=== PATIENT | male | born 1975 | race African-American/Black ===

== ENCOUNTER 2018-03-08 12:22 | Observation (INO) ==
--- NOTE | 2018-03-08 12:38 | ED ---
HPI General Chief Complaint: Chest Pain Stated Complaint: Irregular HB Chest Pain since AM Time Seen by Provider: 03/08/18 12:28 History of Present Illness HPI narrative: Patient is -[place] male, 42 years old, with history of hyperlipidemia, presented to emergency room for chest pain started at 8:30 in the morning, had few episodes the last 1-20 minutes ago. Patient also had palpitations and some shortness of breath during the pain episodes. He is asymptomatic in the emergency room. Vitals stable. He denies fever, upper respiratory symptoms, nausea, vomiting, drug abuse. Patient stated that he drank alcohol yesterday. Related Data Home Medications Medication Instructions Recorded Confirmed simvastatin 03/08/18 Allergies Allergy/AdvReac Type Severity Reaction Status Date / Time No Known Allergies Allergy Mild Uncoded 06/28/08 03:25 Review of Systems ROS: all other systems reviewed are negative Cardiovascular Reports chest pain and Reports palpitations [facility] Medical History Medical History High cholesterol (Acute) Surgical History Surgical History History of back surgery (Acute) Social History Social History Substance History: No History of Abuse Smoking Status: Never smoker How Often Do You Have a Drink Containing Alcohol: 4 or more times a week Recent Travel in [facility] within the Last 8 Weeks: No Recent Out of Country Travel within the Last 8 Weeks: No Exam Narrative Exam Narrative: GENERAL: 52-year-old male in no apparent distress. SKIN: Focused skin assessment warm/dry. HEAD: Atraumatic. Normocephalic. EYES: Pupils equal and round. No scleral icterus. No injection or drainage. ENT: No nasal bleeding or discharge. Mucous membranes pink and moist. NECK: Trachea midline. No JVD. CARDIOVASCULAR: Regular rate and rhythm. No murmur appreciated. RESPIRATORY: No accessory muscle use. Clear to auscultation. Breath sounds equal bilaterally. GASTROINTESTINAL: Abdomen soft, non-tender, nondistended. Hepatic and splenic margins not palpable. MUSCULOSKELETAL: No obvious deformities. No clubbing. No cyanosis. No edema. NEUROLOGICAL: Awake and alert. No obvious cranial nerve deficits. Motor grossly within normal limits. Normal speech. PSYCHIATRIC: Appropriate mood and affect; insight and judgment normal. Course Initial Documented Vital Signs Temperature 98.0 F 03/08/18 12:35 Pulse Rate 89 03/08/18 12:35 Respiratory Rate 20 03/08/18 12:35 Blood Pressure 151/84 H 03/08/18 12:35 Pulse Oximetry 98 03/08/18 12:35 Last Documented Vital Signs Temperature 98.0 F 03/08/18 12:35 Pulse Rate 72 03/08/18 15:44 Respiratory Rate 20 03/08/18 15:44 Blood Pressure 131/73 03/08/18 15:44 Pulse Oximetry 97 03/08/18 15:44 Medical Decision Making MDM Narrative Medical decision making narrative: Patient presented for chest pain, shortness of breath and palpitations during pain episodes, looks anxious. Cardiac workup ordered, aspirin given. Reevaluation is pending. Patient is asymptomatic in the emergency room, first set of cardiac enzymes was negative, normal EKG. Patient agreed to stay in observation for further evaluation and treatment. Chest pain center and [facility] informed. Medical Screen Exam Complete: Yes Emergency Medical Condition: Yes Lab Data Result diagrams: 03/08/18 12:40 03/08/18 12:40 Lab Results 03/08/18 03/08/18 03/08/18 Range/Units 12:40 12:40 14:30 CBC w Diff Auto diff final WBC 5.9 (4.0-11.0) th/mm3 RBC 4.76 (4.50-5.90) mil/mm3 Hgb 15.3 (13.0-17.0) gm/dL POC Hgb (Calc) Not Reportable Hct 44.3 (39.0-51.0) % POC Hct Not Reportable MCV 93.2 (80.0-100.0) fL MCH 32.2 (27.0-34.0) pg MCHC 34.5 (32.0-36.0) % RDW 11.4 L (11.6-17.2) % Plt Count 300 (150-450) th/mm3 MPV 8.9 (7.0-11.0) fL Neut % (Auto) 58.6 (16.0-70.0) % Lymph % (Auto) 31.2 (9.0-44.0) % [place] % (Auto) 7.6 (0.0-8.0) % Eos % (Auto) 1.9 (0.0-4.0) % Baso % (Auto) 0.7 (0.0-2.0) % Neut # (Auto) 3.6 (1.8-7.7) th/mm3 Lymph # (Auto) 1.8 (1.0-4.8) th/mm3 [place] # (Auto) 0.4 (0.0-0.9) th/mm3 Eos # (Auto) 0.1 (0.0-0.4) th/mm3 Baso # (Auto) 0.0 (0.0-0.2) th/mm3 WBC Differential . Differential Comment . POC Sodium 142 (137-144) mmol/L Sodium 140 (136-145) meq/L POC Potassium 4.2 (3.6-5.0) mmol/L Potassium 4.3 (3.5-5.1) meq/L POC Chloride 106 (102-111) mmol/L Chloride 106 (98-107) meq/L Carbon Dioxide 27.2 (21.0-32.0) meq/L Anion Gap 7 (5-15) meq/L POC BUN 23 H (5-21) mg/dL BUN 20 H (7-18) mg/dL Creatinine 1.10 (0.60-1.30) mg/dL POC Creatinine 1.0 (0.6-1.3) mg/dL Estimated GFR 88 L (>89) mL/min POC Glucose 101 (68-110) mg/dL Random Glucose 111 H (74-106) mg/dL Calcium 9.0 (8.5-10.1) mg/dL Total Bilirubin 0.4 (0.2-1.0) mg/dL AST 43 H (15-37) U/L ALT 55 (12-78) U/L Alkaline Phosphatase 153 H (45-117) U/L Troponin Less than 0.05 (0.00-0.40) ng/mL Troponin I Cancelled Total Protein 8.9 H (6.4-8.2) g/dL Albumin 4.3 (3.4-5.0) g/dL Urine Opiates Screen Neg (Neg) Ur Barbiturates Screen Neg (Neg) Ur Amphetamines Screen Neg (Neg) U Benzodiazepines Scrn Neg (Neg) Urine Cocaine Screen Neg (Neg) U Cannabinoids Screen Neg (Neg) Serum Alcohol Less than 3 (0-5) mg/dL Imaging Data Radiologist's impression: Chest X-Ray 03/08/18 12:35 CONCLUSION: No acute cardiopulmonary abnormality is identified. ECG Data EKG Prior to Arrival: No Attestation: I personally reviewed and interpreted this ECG as follows: Prior ECG tracings: available for review Interpretation: Normal sinus rhythm at rate 89 no elevation, normal EKG. Discharge Plan Discharge Disposition Patient Disposition: ED Admit(ED Internal Use Only) Discharge Condition Condition: Fair Discharge Order Discharge Orders: ED Use Only Admit Order (Routine); Ordered 03/08/18 Ordered By: Samir Stallworth Physicians Team ED Provider: Samir Stallworth Primary Care Provider: Mena Stringer Rxs /Orders / Referrals /Forms Prescriptions: No Action simvastatin RF: 0 Discharge Instructions Patient Printed Instructions: Chest Pain (ED) Status ED Status: Admitted Observation Patient
[2018-03-08 12:51] LABS: Baso % (Auto) 0.7 % (0.0-2.0); Eos # (Auto) 0.1 th/mm3 (0.0-0.4); Eos % (Auto) 1.9 % (0.0-4.0); Hematocrit 44.3 % (39.0-51.0); Hemoglobin 15.3 gm/dL (13.0-17.0); Lymph # (Auto) 1.8 th/mm3 (1.0-4.8); Lymph % (Auto) 31.2 % (9.0-44.0); Mean Corpuscular HGB Conc 34.5 % (32.0-36.0); Mean Corpuscular Hemoglobin 32.2 pg (27.0-34.0); Mean Corpuscular Volume 93.2 fL (80.0-100.0); Mean Platelet Volume 8.9 fL (7.0-11.0); Mono # (Auto) 0.4 th/mm3 (0.0-0.9); Mono % (Auto) 7.6 % (0.0-8.0); Neut # (Auto) 3.6 th/mm3 (1.8-7.7); Neut % (Auto) 58.6 % (16.0-70.0); Platelet Count 300 th/mm3 (150-450); Red Blood Count 4.76 mil/mm3 (4.50-5.90); Red Cell Distribution Width 11.4 % (11.6-17.2); White Blood Count 5.9 th/mm3 (4.0-11.0)
--- NOTE | 2018-03-08 13:01 | XR ---
EXAM DATE: 03/08/2018 12:44 PM EST AGE/SEX: 42 years / Male INDICATIONS: Chest pain, irregular heart beat, short of breath. CLINICAL DATA: This is the patient's initial encounter. Patient reports that signs and symptoms have been present for 1 day and indicates a pain score of 6/10. MEDICAL/SURGICAL HISTORY: None. None. COMPARISON: No prior exams available for comparison. FINDINGS: Underinflated AP view of the chest demonstrates a normal-sized cardiac silhouette. There is mild subs egmental atelectasis at the lung bases but no effusion, consolidation, or pneumothorax is identified. Bones and soft tissues demonstrate no acute finding. EKG lines overlie the patient. CONCLUSION: No acute cardiopulmonary abnormality is identified. Electronically signed by: Harsha Tavares MD Board Certified Radiologist 03/08/2018 1:00 PM EST
[2018-03-08 14:20] LABS: Alkaline Phosphatase 153 U/L (45-117); Total Protein 8.9 g/dL (6.4-8.2)
[2018-03-08 14:21] LABS: Alanine Aminotransferase 55 U/L (12-78); Albumin 4.3 g/dL (3.4-5.0); Anion Gap 7 meq/L (5-15); Aspartate Aminotransferase 43 U/L (15-37); Blood Urea Nitrogen 20 mg/dL (7-18); Carbon Dioxide 27.2 meq/L (21.0-32.0); Chloride 106 meq/L (98-107); Glomerular Filtration Rate 88 mL/min (>89); Glucose,Random 111 mg/dL (74-106); Potassium 4.3 meq/L (3.5-5.1)
[2018-03-08 14:22] LABS: Sodium 140 meq/L (136-145)
[2018-03-08 14:53] LABS: Amphetamine Screen,Urine Neg (Neg); Barbiturate Screen,Urine Neg (Neg)
[2018-03-08 14:54] LABS: Cannabinoid Screen,Urine Neg (Neg); Cocaine Screen,Urine Neg (Neg)
[2018-03-08 15:14] LABS: Opiate Screen,Urine Neg (Neg)
--- NOTE | 2018-03-08 15:42 | ECG ---
Date Performed: 03/08/2018 Time Performed: 12:28:42 PTAGE: 42 years EKG: Sinus rhythm NORMAL ECG NO PREVIOUS TRACING DOCTOR: Contreras Stafford Interpretating Date/Time 03/08/2018 15:41:03
[2018-03-08] MEDS ORDERED: Morphine Inj 4 MG/ML Vial IV.PUSH PRN (16:23)
[2018-03-08] MEDS ORDERED: Acetaminophen 500 MG Tablet PO PRN (16:23)
--- NOTE | 2018-03-08 16:40 | P.HP ---
History of Present Illness Primary Care Physician: Mena Stringer Chief Complaint: Palpitations and chest discomfort History of Present Illness: 42-year-old male with known history of hyperlipidemia who presented to hospital because of chest discomfort. Patient states that over the last year he has been experiencing intermittent episodes of him feeling his heart beating real hard and then developing a pain in the middle part of his chest. He does not associated with any exertion or rest. There is no radiation to neck, back, shoulder, arm. Denies any nausea, vomiting, diaphoresis, shortness of breath, dyspnea, lightheadedness, dizziness. The pain usually lasts for a couple minutes and are usually resolves on its own. Patient did go to his primary medical doctor's office about 1 week ago and they are in the process of getting him an appointment with a international logistics manager for further evaluation and management. However when the patient was having breakfast this morning at approximately 10 AM he had the same episode so he came to the hospital for evaluation. Currently the patient is asymptomatic. Patient had workup done by emergency department and it was recommended that patient be observed and chest pain center for further evaluation and management. Patient denies any previous cardiac workup or any outpatient international logistics manager at the time. - Diagnosis (1) Chest discomfort Review of Systems All other systems reviewed negative except as stated in HPI Cardiovascular: Reports chest pain, Reports rapid, pounding, or irregular heartbeat PMFSH - History History Provided By: Patient - Medical History Medical History: Medical History (Last Updated 03/08/18 @ 12:42 by Lawanda Plascencia RN) High cholesterol - Surgical History Surgical History: Surgical History (Last Updated 03/08/18 @ 12:42 by Lawanda Plascencia RN) History of back surgery - Family History Family History: Family History (Last Updated 03/08/18 @ 16:38 by MADI Burgos) Father Family history of heart disease Mother Family history of heart disease - Tobacco History Smoking Status: Current some day smoker - Alcohol History How Often Do You Have a Drink Containing Alcohol: 4 or more times a week ( Patient states that he drinks at least 14 alcoholic beverages weekly) - Substance Use History Substance History: No History of Abuse - Travel History Recent Travel in the [place] Within the Last 8 Weeks: No Recent Travel Out of the Country Within the Last 8 Weeks: No - Immunization History Tetanus Immunization: >5 Years Medications and Allergies Active Medications: Active Medications Acetaminophen (Tylenol) 500 mg PO Q4H PRN PRN Reason: HEADACHE Hydrocodone Bitart/Acetaminophen ([place] 7.5/325) 1 tab PO Q4H PRN PRN Reason: PAIN SCALE 1 TO 7 Aspirin (Aspirin) 325 mg PO DAILY GIGI Morphine Sulfate (Morphine Inj) 2 mg IV.PUSH Q4H PRN PRN Reason: PAIN SCALE 8 TO 10 Nitroglycerin (Nitrostat Sl) 0.4 mg SL Q5M PRN PRN Reason: CHEST PAIN Ondansetron HCl (Zofran Inj) 4 mg IV.PUSH Q6H PRN PRN Reason: NAUSEA Sodium Chloride (Ns Flush) 2 ml IV.FLUSH UNSCH PRN PRN Reason: FLUSH AFTER USING IV ACCESS Sodium Chloride (Ns Flush) 2 ml IV.FLUSH BID GIGI Sodium Chloride (Ns Flush) 2 ml IV.FLUSH PRN PRN PRN Reason: FLUSH AFTER USING IV ACCESS Allergies Allergy/AdvReac Type Severity Reaction Status Date / Time No Known Allergies Allergy Mild Uncoded 06/28/08 03:25 Home Medications Medication Instructions Recorded Confirmed Type simvastatin 03/08/18 History Exam Vital signs: Vital Signs 03/08/18 12:35 03/08/18 12:37 03/08/18 13:34 Temperature 98.0 F Pulse Rate 89 89 81 Respiratory Rate 20 20 Blood Pressure 151/84 H 134/77 Pulse Oximetry 98 98 100 03/08/18 14:34 03/08/18 15:44 Temperature Pulse Rate 74 72 Respiratory Rate 16 20 Blood Pressure 134/74 131/73 Pulse Oximetry 98 97 Intake & Output 03/07/18 03/08/18 03/08/18 18:59 06:59 18:59 Weight 101.8 kg Narrative: GENERAL: Well-developed, well-nourished, in no acute distress. alert and orientated HEENT: Head is normocephalic without any lesions or masses noted. Facial features are symmetric. Eyes: Pupils equal round reactive to light. Extraocular muscles are intact. Conjunctivae were clear. Oropharyngeal: Pharynx without any erythema edema. Tongue is midline without deviation. Buccal mucosa is moist without any masses or lesions NECK: Supple without any masses. Trachea midline no deviation. No JVD, no bruits are appreciated CARDIAC: Regular rhythm, regular rate. S1/S2 are heard. No murmurs gallops or rubs. LUNGS: Clear to auscultation bilaterally. No wheeze, rhonchi or rales. No use of accessory muscles on inspiration or expiration. ABDOMEN: Soft, nontender. Nondistended. Bowel sounds heard in all 4 quadrants. No organomegaly or masses. Negative rebound, negative guarding EXTREMITIES: No edema, pulses are equal bilaterally. No cyanosis or clubbing NEUROLOGY: Mood and affect appear appropriate. Cranial nerves II through XII grossly intact. Muscle strength 5/5 in upper and lower extremities bilaterally. Deep tendon reflexes are 2+ in upper and lower extremities bilaterally. Results - Labs CBC & Chem 7: 03/08/18 12:40 03/08/18 12:40 Labs: Laboratory Results - last 24 hr 03/08/18 03/08/18 03/08/18 12:40 12:40 14:30 CBC w Diff Auto diff final WBC 5.9 RBC 4.76 Hgb 15.3 POC Hgb (Calc) Not Reportable Hct 44.3 POC Hct Not Reportable MCV 93.2 MCH 32.2 MCHC 34.5 RDW 11.4 L Plt Count 300 MPV 8.9 Neut % (Auto) 58.6 Lymph % (Auto) 31.2 [place] % (Auto) 7.6 Eos % (Auto) 1.9 Baso % (Auto) 0.7 Neut # (Auto) 3.6 Lymph # (Auto) 1.8 [place] # (Auto) 0.4 Eos # (Auto) 0.1 Baso # (Auto) 0.0 WBC Differential . Differential Comment . POC Sodium 142 Sodium 140 POC Potassium 4.2 Potassium 4.3 POC Chloride 106 Chloride 106 Carbon Dioxide 27.2 Anion Gap 7 POC BUN 23 H BUN 20 H Creatinine 1.10 POC Creatinine 1.0 Estimated GFR 88 L POC Glucose 101 Random Glucose 111 H Calcium 9.0 Total Bilirubin 0.4 AST 43 H ALT 55 Alkaline Phosphatase 153 H Troponin Less than 0.05 Troponin I Cancelled Total Protein 8.9 H Albumin 4.3 Urine Opiates Screen Neg Ur Barbiturates Screen Neg Ur Amphetamines Screen Neg U Benzodiazepines Scrn Neg Urine Cocaine Screen Neg U Cannabinoids Screen Neg Serum Alcohol Less than 3 - Imaging Impressions Chest X-Ray 03/08/18 12:35 CONCLUSION: No acute cardiopulmonary abnormality is identified. Caprini VTE Risk Assessment Caprini VTE Risk Assessment: No/Low Risk (score <= 1) Caprini Risk Assessment Model: Point Value = 1 Point Value = 2 Point Value = 3 Point Value = 5 Age 41-60 Minor surgery BMI > 25 kg/m2 Swollen legs Varicose veins or History of unexplained or recurrent spontaneous Oral contraceptives or hormone replacement Sepsis (< 1 month) Serious lung disease, including pneumonia (< 1 month) Abnormal pulmonary function Acute myocardial infarction Congestive heart failure (< 1 month) History of inflammatory bowel disease Medical patient at bed rest Age 61-74 Arthroscopic surgery Major open surgery (> 45 min) Laparoscopic surgery (> 45 min) Malignancy Confined to bed (> 72 hours) Immobilizing plaster cast Central venous access Age >= 75 History of VTE Family history of VTE Factor V Leiden Prothrombin [id number] Lupus anticoagulant Anticardiolipin antibodies Elevated serum homocysteine Heparin-induced thrombocytopenia Other congenital or acquired thrombophilia Stroke (< 1 month) Elective arthroplasty Hip, pelvis, or leg fracture Acute spinal cord injury (< 1 month) Prophylaxis Regimen: Total Risk Factor Score Risk Level Prophylaxis Regimen 0-1 Low Early ambulation 2 Moderate Order ONE of the following: *Sequential Compression Device (SCD) *Heparin 5000 units SQ BID 3-4 Higher Order ONE of the following medications: *Heparin 5000 units SQ TID *Enoxaparin/Lovenox 40 mg SQ daily (WT < 150 kg, CrCl > 30 mL/min) *Enoxaparin/Lovenox 30 mg SQ daily (WT < 150 kg, CrCl > 10-29 mL/min) *Enoxaparin/Lovenox 30 mg SQ BID (WT < 150 kg, CrCl > 30 mL/min) AND/OR *Sequential Compression Device (SCD) 5 or more Highest Order ONE of the following medications: *Heparin 5000 units SQ TID (Preferred with Epidurals) *Enoxaparin/Lovenox 40 mg SQ daily (WT < 150 kg, CrCl > 30 mL/min) *Enoxaparin/Lovenox 30 mg SQ daily (WT < 150 kg, CrCl > 10-29 mL/min) *Enoxaparin/Lovenox 30 mg SQ BID (WT < 150 kg, CrCl > 30 mL/min) AND *Sequential Compression Device (SCD) Assessment and Plan - Assessment (1) Chest discomfort Code(s): R07.89 - Other chest pain Status: Acute - Plan Chest discomfort, palpitations -Patient with increased risk factors to include hyperlipidemia, family history of heart disease, tobacco use -We will continue to rule the patient out for acute coronary event with serial cardiac enzymes which thus far have been normal -We will continue monitor serial EKGs, original EKG shows sinus rhythm without any abnormalities -Continue monitor telemetry for any arrhythmia -If patient is ruled out for any acute coronary event will anticipate performing exercise stress test Hyperlipidemia -Home medication will be continued DVT prevention -Low risk, will use sequential compression devices
[2018-03-08 17:13] LABS: Creatine Kinase 790 U/L (39-308)
[2018-03-08 17:25] LABS: CKMB Percent 0.5 % (0.0-4.0); Creatine Kinase MB 4.3 ng/mL (0.5-3.6)
[2018-03-08] MEDS: Sod Chloride 0.9% Inj 1,000 ML IV.CONT SCH (19:07)
[2018-03-08 19:33] LABS: Creatine Kinase 761 U/L (39-308)
[2018-03-08 19:45] LABS: CKMB Percent 0.5 % (0.0-4.0); Creatine Kinase MB 4.1 ng/mL (0.5-3.6)
[2018-03-08] MEDS ORDERED: Sodium Chloride 0.65% Nasal Spray 45 ML Bottle EACH NARE PRN (21:00)
[2018-03-09] MEDS: Sod Chloride 0.9% Inj 1,000 ML IV.CONT SCH (02:12)
[2018-03-09 06:52] LABS: Chloride 106 meq/L (98-107); Potassium 4.1 meq/L (3.5-5.1); Sodium 140 meq/L (136-145)
[2018-03-09 06:57] LABS: Albumin 3.6 g/dL (3.4-5.0); Anion Gap 6 meq/L (5-15); Calcium 8.2 mg/dL (8.5-10.1); Carbon Dioxide 27.7 meq/L (21.0-32.0); Glucose,Random 103 mg/dL (74-106)
[2018-03-09 06:58] LABS: Blood Urea Nitrogen 18 mg/dL (7-18)
[2018-03-09 07:00] LABS: Alanine Aminotransferase 41 U/L (12-78); Aspartate Aminotransferase 25 U/L (15-37)
[2018-03-09 07:01] LABS: Glomerular Filtration Rate Greater Than 89 mL/min (>89)
[2018-03-09 07:02] LABS: Total Protein 7.6 g/dL (6.4-8.2)
[2018-03-09 07:03] LABS: Alkaline Phosphatase 108 U/L (45-117)
[2018-03-09 08:00] LABS: CKMB Percent 0.6 % (0.0-4.0); Creatine Kinase MB 3.1 ng/mL (0.5-3.6)
--- NOTE | 2018-03-09 08:16 | P.PNIM ---
Subjective Interval history: 42-year-old male seen examined today for follow-up on palpitations and chest discomfort. Patient has not had any recurrent episodes during his stay in the hospital. Telemetry was reviewed which did not indicate any arrhythmias. Vital signs remained stable. Patient remains afebrile. Physical Exam Vital signs: Vital Signs 03/08/18 12:35 03/08/18 12:37 03/08/18 13:34 Temperature 98.0 F Pulse Rate 89 89 81 Respiratory Rate 20 20 Blood Pressure 151/84 H 134/77 Pulse Oximetry 98 98 100 03/08/18 14:34 03/08/18 15:44 03/08/18 16:35 Temperature Pulse Rate 74 72 Respiratory Rate 16 20 Blood Pressure 134/74 131/73 Pulse Oximetry 98 97 100 03/08/18 18:28 03/08/18 20:00 03/09/18 00:00 Temperature 97.3 F L 97.5 F L 97.1 F L Pulse Rate 78 72 72 Respiratory Rate 20 20 20 Blood Pressure 138/80 125/76 137/87 Pulse Oximetry 97 98 98 03/09/18 04:00 Temperature 96.7 F L Pulse Rate 71 Respiratory Rate 20 Blood Pressure 121/68 Pulse Oximetry 97 Intake & Output 03/08/18 03/09/18 03/09/18 18:59 06:59 18:59 Intake Total 1480 / 1480 Balance 1480 / 1480 Weight 101.8 kg 107.8 kg Intake: IV 1000 / 1000 NS Inj 1,000 ML @ 150 mls/hr IV 1000 / 1000 .CONT .[id number] [facility] Rx#: [id number] Oral 480 / 480 Other: # Voids 3 Narrative: GENERAL: Well-developed, well-nourished, in no acute distress. alert and orientated HEENT: Head is normocephalic without any lesions or masses noted. Facial features are symmetric. Eyes: Extraocular muscles are intact. Conjunctivae were clear. NECK: Supple without any masses. Trachea midline no deviation. No JVD, CARDIAC: Regular rhythm, regular rate. S1/S2 are heard. No murmurs gallops or rubs. LUNGS: Clear to auscultation bilaterally. No wheeze, rhonchi or rales. No use of accessory muscles on inspiration or expiration. ABDOMEN: Soft, nontender. Nondistended. Bowel sounds heard in all 4 quadrants. No organomegaly or masses. Negative rebound, negative guarding EXTREMITIES: No edema, pulses are equal bilaterally. No cyanosis or clubbing NEUROLOGY: Mood and affect appear appropriate. Cranial nerves II through XII grossly intact. Moving all extremities, speech is clear Results - Labs CBC & Chem 7: 03/08/18 12:40 03/09/18 05:35 Laboratory Results - last 24 hr 03/08/18 03/08/18 03/08/18 12:40 12:40 14:30 CBC w Diff Auto diff final WBC 5.9 RBC 4.76 Hgb 15.3 POC Hgb (Calc) Not Reportable Hct 44.3 POC Hct Not Reportable MCV 93.2 MCH 32.2 MCHC 34.5 RDW 11.4 L Plt Count 300 MPV 8.9 Neut % (Auto) 58.6 Lymph % (Auto) 31.2 [place] % (Auto) 7.6 Eos % (Auto) 1.9 Baso % (Auto) 0.7 Neut # (Auto) 3.6 Lymph # (Auto) 1.8 [place] # (Auto) 0.4 Eos # (Auto) 0.1 Baso # (Auto) 0.0 WBC Differential . Differential Comment . POC Sodium 142 Sodium 140 POC Potassium 4.2 Potassium 4.3 POC Chloride 106 Chloride 106 Carbon Dioxide 27.2 Anion Gap 7 POC BUN 23 H BUN 20 H Creatinine 1.10 POC Creatinine 1.0 Estimated GFR 88 L POC Glucose 101 Random Glucose 111 H Calcium 9.0 Total Bilirubin 0.4 AST 43 H ALT 55 Alkaline Phosphatase 153 H Total Creatine Kinase CK-MB (CK-2) CK-MB (CK-2) % Troponin Less than 0.05 Troponin I Cancelled Total Protein 8.9 H Albumin 4.3 Urine Opiates Screen Neg Ur Barbiturates Screen Neg Ur Amphetamines Screen Neg U Benzodiazepines Scrn Neg Urine Cocaine Screen Neg U Cannabinoids Screen Neg Serum Alcohol Less than 3 03/08/18 03/08/18 03/09/18 16:45 19:09 05:35 CBC w Diff WBC RBC Hgb POC Hgb (Calc) Hct POC Hct MCV MCH MCHC RDW Plt Count MPV Neut % (Auto) Lymph % (Auto) [place] % (Auto) Eos % (Auto) Baso % (Auto) Neut # (Auto) Lymph # (Auto) [place] # (Auto) Eos # (Auto) Baso # (Auto) WBC Differential Differential Comment POC Sodium Sodium 140 POC Potassium Potassium 4.1 POC Chloride Chloride 106 Carbon Dioxide 27.7 Anion Gap 6 POC BUN BUN 18 Creatinine 1.00 POC Creatinine Estimated GFR Greater than 89 POC Glucose Random Glucose 103 Calcium 8.2 L D Total Bilirubin 0.6 AST 25 ALT 41 Alkaline Phosphatase 108 Total Creatine Kinase 790 H 761 H CK-MB (CK-2) 4.3 H 4.1 H CK-MB (CK-2) % 0.5 0.5 Troponin Troponin I Less than 0.02 L Less than 0.02 L Total Protein 7.6 D Albumin 3.6 D Urine Opiates Screen Ur Barbiturates Screen Ur Amphetamines Screen U Benzodiazepines Scrn Urine Cocaine Screen U Cannabinoids Screen Serum Alcohol 03/09/18 05:35 CBC w Diff WBC RBC Hgb POC Hgb (Calc) Hct POC Hct MCV MCH MCHC RDW Plt Count MPV Neut % (Auto) Lymph % (Auto) [place] % (Auto) Eos % (Auto) Baso % (Auto) Neut # (Auto) Lymph # (Auto) [place] # (Auto) Eos # (Auto) Baso # (Auto) WBC Differential Differential Comment POC Sodium Sodium POC Potassium Potassium POC Chloride Chloride Carbon Dioxide Anion Gap POC BUN BUN Creatinine POC Creatinine Estimated GFR POC Glucose Random Glucose Calcium Total Bilirubin AST ALT Alkaline Phosphatase Total Creatine Kinase 552 H CK-MB (CK-2) 3.1 CK-MB (CK-2) % 0.6 Troponin Troponin I Total Protein Albumin Urine Opiates Screen Ur Barbiturates Screen Ur Amphetamines Screen U Benzodiazepines Scrn Urine Cocaine Screen U Cannabinoids Screen Serum Alcohol - Imaging Impressions Chest X-Ray 03/08/18 12:35 CONCLUSION: No acute cardiopulmonary abnormality is identified. Assessment and Plan - Assessment (1) Chest discomfort Code(s): R07.89 - Other chest pain Status: Acute - Plan Chest discomfort, palpitations -Patient with increased risk factors to include hyperlipidemia, family history of heart disease, tobacco use -Patient has been ruled out for acute coronary event with serial cardiac enzymes that are negative -Serial EKGs were reviewed by myself and indicated sinus rhythm with nonspecific T wave abnormalities -Telemetry was reviewed and no events were documented -Exercise stress test was performed and indicated no signs of ischemia, normal examination Elevated CPK, possible rhabdomyolysis -Continued IV fluids -CPK is trending down -We will continue to hold statin at this time Hyperlipidemia -Statin will be held due to elevated CPK/rhabdomyolysis -Patient will need follow-up with primary medical doctor for continued monitoring DVT prevention -Low risk, will use sequential compression devices Discharge Planning: Discharge home in stable condition Activity: Ad german. Diet: Healthy heart diet Medication per medication reconciliation Follow-up with primary medical doctor in 1 week
[2018-03-09] MEDS ORDERED: Aspirin 325 MG Tablet PO SCH (09:00)
[2018-03-09 09:55] VITALS: O2SAT 98
[2018-03-09 10:03] VITALS: BP 116/72; PULSE 68; RESP 19; TEMP 97.1
--- NOTE | 2018-03-09 10:16 | TR ---
Date Performed: 03/09/2018 Time Performed: 08:49:50 DOCTOR: Contreras Stafford DRUG LIST: CLINICAL HISTORY: REASON FOR TEST: Chest pain REASON FOR ENDING: Completed Protocol OBSERVATION: Chest Pain: None CONCLUSION: Patient tolerated ABILIO protocol with Total Exercise Time=8:10 Maximum BT=774 % Max HR Achieved=94.0% Maximum RB=353/96, Testing stopped secondary to goals acheived, patient was asympto matic during testing, During peak exercise upsloping ST segments. HR and BP appropriate response to e xercise. Recovery period HR and BP returned to baseline COMMENTS: Conclusion: Normal treadmill exercise. No evidence of ischemia.
--- NOTE | 2018-03-09 10:21 | ECG ---
Date Performed: 03/08/2018 Time Performed: 22:04:35 PTAGE: 42 years EKG: Sinus rhythm NONSPECIFIC T-WAVE ABNORMALITY BORDERLINE ECG PREVIOUS TRACING : 03/08/2018 18.57 Since previous tracing, no significant change noted DOCTOR: Contreras Stafford Interpretating Date/Time 03/09/2018 10:21:23
--- NOTE | 2018-03-09 10:22 | ECG ---
Date Performed: 03/08/2018 Time Performed: 18:57:39 PTAGE: 42 years EKG: Sinus rhythm NONSPECIFIC T-WAVE ABNORMALITY BORDERLINE ECG PREVIOUS TRACING : 03/08/2018 12.28 Since previous tracing, no significant change noted DOCTOR: Contreras Stafford Interpretating Date/Time 03/09/2018 10:21:57
== END 2018-03-09 12:03 | disposition home or self-care (01) ==
LOC: PHED 12:22 → PHEDA 12:22 → PH3 17:35
PROVIDERS: ADMIT Hospitalist; ATTEND Hospitalist
DX: R06.02 Shortness of breath; Z72.0 Tobacco use; E78.5 Hyperlipidemia, unspecified; R07.9 Chest pain, unspecified; Z82.49 Family history of ischemic heart disease and other diseases of the circulatory system; R00.2 Palpitations